=== PATIENT | female | born 1995 | race Caucasian/White ===

== ENCOUNTER 2017-11-17 01:37 | Emergency (ER) | payer SELFPAY ==
[2017-11-17] MEDS ORDERED: NS 0.9% 1000 ML* 1,000 ML IV ONE (02:03)
[2017-11-17] MEDS ORDERED: Famotidine IV* 10 MG/ML 2 ML (20 mg) IV SLOW PU ONE (02:03)
[2017-11-17] MEDS ORDERED: Metoclopramide IV* 5 MG/ML 2 ML VIAL IV ONE (02:03)
--- NOTE | 2017-11-17 06:56 | ED ---
Lorraine Leon Emily, scribed for Thomas March MD on 11/17/17 at 0202 . Substance Abuse/Use - HPI Summary HPI Summary: This patient is a 22 year old F [facility] friend with a chief complaint of ETOH intoxication that occurred [employer]. The patient rates the pain 0/10 in severity. Symptoms aggravated by nothing. Symptoms alleviated by nothing. Patient reports nausea. - History Of Current Complaint Chief Complaint: EDSubstanceAbuse Stated Complaint: ETOH Time Seen by Provider: 11/17/17 01:42 Hx Obtained From: Patient ?: No Severity Initially: Mild Severity Currently: Mild Aggravating Factor(s): Nothing Alleviating Factor(s): Nothing Associated Signs And Symptoms: Nausea - Allergies/Home Medications Allergies/Adverse Reactions: Allergies Allergy/AdvReac Type Severity Reaction Status Date / Time Unable to Assess Allergy Verified 11/17/17 01:39 Home Medications: Home Medications NK [No Home Medications Reported] 11/17/17 [History Confirmed 11/17/17] PMH/Surg Hx/FS Hx/Imm Hx Previously Healthy: Yes Opthamlomology History: Denies: Hx Legally Blind EENT History: Denies: Hx Deafness Infectious Disease History: No Infectious Disease History: Denies: Traveled Outside the [place] in Last 30 Days - Family History Known Family History: Positive: Unknown - Social History Occupation: Student Lives: Dormitory/Roommates Alcohol Use: Occasionally Hx Substance Use: No Substance Use Type: Reports: None Hx Tobacco Use: No Smoking Status (MU): Never Smoked Tobacco Review of Systems Negative: Fever Positive: Nausea All Other Systems Reviewed And Are Negative: Yes Physical Exam - Summary Physical Exam Summary: Appearance: Well appearing, no pain distress Skin: warm, dry, reflects adequate perfusion Head/face: normal Eyes: EOMI, RUTHIE ENT: clear secretions in mouth Neck: supple, non-tender Respiratory: CTA, breath sounds present Cardiovascular: RRR, pulses symmetrical Abdomen: non-tender, soft Bowel Sounds: present Musculoskeletal: normal, strength/ROM intact Neuro: normal, sensory motor intact, A&Ox3, just answers yes or no Triage Information Reviewed: Yes Vital Signs On Initial Exam: Initial Vitals Temp Pulse Resp BP Pulse Ox 97.6 F 70 14 112/74 94 11/17/17 01:37 11/17/17 01:37 11/17/17 01:37 11/17/17 01:37 11/17/17 01:37 Vital Signs Reviewed: Yes Diagnostics - Vital Signs Vital Signs Temp Pulse Resp BP Pulse Ox 11/17/17 01:37 97.6 F 70 14 112/74 94 - Laboratory Lab Statement: Any lab studies that have been ordered have been reviewed, and results considered in the medical decision making process. Re-Evaluation - Re-Evaluation First Eval Re-Evaluation Time: 06:35 Change: Improved Comment: Pt still has nystagmus. Discussed plan of care with pt Course/Dx - Course Course Of Treatment: Patient brought in by friend after drinking heavily in their house. No history of trauma and no findings of trauma on the patient. The patient sobered over several hours in the ER. She was moving about the ER with return of functional capacity are clear speech, steady gait. She'll be discharged with her friend who is her safe ride. - Diagnoses Provider Diagnoses: Alcohol intoxication Discharge - Sign-Out/Discharge Documenting (check all that apply): Discharge/Admit/Transfer - Discharge Plan Condition: Good Disposition: HOME Patient Education Materials: Alcohol Intoxication (ED) Referrals: [facility] - Tito CHEATHAM [Medical Doctor] - Additional Instructions: Never drink to excess. Drinking this much can be dangerous or can allow you to be victimized. Call Saturday to follow-up with [facility]. Discussed with them your drinking and ways to curb it. - Billing Disposition and Condition Condition: GOOD Disposition: HOME The documentation as recorded by the Lorraine fletcher Emily accurately reflects the service I personally performed and the decisions made by me, Thmoas March MD.
[2017-11-17 09:44] VITALS: BP 123/57
== END 2017-11-17 10:08 | disposition home or self-care (01) ==
LOC: ED 01:37
DX: F10.129 Alcohol abuse with intoxication, unspecified (principal)
CPT/HCPCS: 96360; 96374; 96375; 99282; J2765

== ENCOUNTER 2019-09-17 12:06 | Day surgery (SDC) | payer BC ==
[~2019-09-17 12:06] MED LIST: Buffered Lidocaine 1% SYRIN* 1 ML/SYRINGE INTRADERM ONE; DiMENhydriNATE IV* 50 MG/ML VIAL IV PUSH PRN; HYDROmorphone INJ1* 1 MG/ML SYRINGE IV PRN; Lactated Ringers 1000 ML Bag* 1,000 ML IV SCH; Naloxone* 0.4 MG/ML 1 ML VIAL IV PRN; Ondansetron INJ* 2 MG/ML VIAL IV PRN
[2019-09-17] MEDS ORDERED: Buffered Lidocaine 1% SYRIN* 1 ML/SYRINGE INTRADERM ONE (12:52)
[2019-09-17] MEDS ORDERED: Benzocaine/Butamben/Tetracain (CETACAINE - SINGLE USE) 5 gm TOPICAL ONE (13:46)
[2019-09-17] MEDS ORDERED: Propofol* 10 MG/ML 20 ML BTL ONE (13:57)
[2019-09-17] MEDS ORDERED: HYDROmorphone INJ1* 1 MG/ML SYRINGE ONE (13:57)
[2019-09-17] MEDS ORDERED: Rocuronium* 10 MG/ML VIAL ONE (13:58)
[2019-09-17] MEDS ORDERED: Ondansetron INJ* 2 MG/ML VIAL ONE (14:30)
[2019-09-17] MEDS ORDERED: Sugammadex * 200 MG/2 ML VIAL IV PUSH ONE (14:34)
--- NOTE | 2019-09-17 15:11 | BRIEFOPN ---
Brief Operative/Procedure Note - Operation Details Pre-Op Diagnosis: Cavitary lung mass Post-Op Diagnosis: Cavitary lung mass Procedures: Bronchoscopy with BAL, transbronchial and endobronchial biopsies Surgeon(s)/Proceduralists: Kaylie Bhagat Anesthesia: GA Estimated Blood Loss: None Findings: Purulent secretions eminating from RLL superior and lateral segments, no endobronchial lesions Specimen(s)/Culture(s) Description: BAL for microbiological cultures-bacterial, fungal and AGB, cytology. Transbronchial and endobronchial biopsies rt side for surgical pathology. Tissue from endobronchial biopsy also sent to micro for cultures. Complications: None
[2019-09-17 17:33] VITALS: BP 100/59
--- NOTE | 2019-09-18 02:50 | PRO ---
BRONCHOSCOPY REPORT: DATE OF PROCEDURE: 09/17/19 - [facility] PREPROCEDURAL DIAGNOSES: Cavitary lung mass on the right side, with airspace opacity in the right lower lobe, rule out tuberculosis. ANESTHESIA: General anesthesia. INDICATIONS: The patient with pneumonia-like symptoms and flu-like symptoms recently with no improvement on antibiotics. CT showed evidence of cavitary lesion in superior segment of the right lower lobe. The patient with no cough or sputum production since she was treated with antibiotics. No concern with active TB or infectious TB was suspected, the patient also was seen by Dr. Atkins. Respiratory airborne isolation precautions were followed while the patient was in the preprocedural area and also in the OR with maintenance of negative pressure. DESCRIPTION OF PROCEDURE: Informed consent was obtained from the patient prior to the procedure after all the risks and benefits were thoroughly explained including risk of pneumothorax. The patient was intubated with size 8 endotracheal tube. An Olympus bronchoscope was inserted through ET tube for airway inspection. No endobronchial lesions or secretions noted on the left side. The patient noted to have dark yellow purulent secretions emanating from the superior segment of right lower lobe bronchus and also from the lateral segment. Bronchial washings were obtained from that area and were sent for microbiological and cytological exam. The patient noted to have some mucosal irregularity in the superior segment, also with evidence of bleeding with minimal suction, appeared to be irritated in that area. No obvious endobronchial lesions were noted. Bronchoscope was placed in that area and transbronchial biopsies were obtained under fluoro guidance. Endobronchial biopsies were also obtained from superior segment irregular area. Specimen was placed in formalin. Tissue was also sent to Microbiology. Bronchoscope was then withdrawn. No further bleeding was noted in that area. The patient tolerated the procedure well. The patient was seen in Recovery in optimal condition. [id number]/CPS #: [id number] [facility]
== END 2019-09-17 17:30 | disposition home or self-care (01) ==
LOC: OR 12:06
PROVIDERS: ATTEND Internal Medicine
DX: J98.4 Other disorders of lung (principal); R91.8 Other nonspecific abnormal finding of lung field; J45.909 Unspecified asthma, uncomplicated; J84.10 Pulmonary fibrosis, unspecified
CPT/HCPCS: 71045; 76000; 80500; 81025; 87070; 87102; 87116; 87205; 87206; 88112; 88305; J1170; J2405; J2704

== ENCOUNTER 2019-09-18 04:14 | Emergency (ER) | payer BC ==
--- OUTSIDE RECORDS SUMMARY | 2019-09-18 04:29 | XMS REPORT | Continuity of Care Document ---
:1995 External Reference #:[id number] Author Name Abhay Patton M.D. (transmitted by agent of provider Ying Morris ) Address [address] [place] [id number] Problems Description No Information Available Social History Type Date Description Comments Sex Unknown Tobacco Use Start: Unknown Patient has never smoked Smoking Status Reviewed: 09/15/19 Patient has never smoked Allergies, Adverse Reactions, Alerts Active Allergies Reaction Severity Comments Date NKDA 09/08/2019 Nickel Rash 09/15/2019 [place] 09/15/2019 Medications Active Medications SIG Qnty Indications Ordering Date Provider Hydroxyzine HCL 1/2 tablet as Unknown 10mg needed for Tablets anxiety, 1-2 tablet QHS for insomnia Paragard Intrauterine Unknown Copper Contraceptive T380a T380a IUD Albuterol Sulfate HFA 1-2 puffs every 1units Unknown 4-6 hrs as needed 108(90Base) mcg/Act Aerosol Immunizations Description No Information Available Vital Signs Date Vital Result Comment 09/15/2019 9:50am Height 67 inches 5'7" Weight 123.12 lb Heart Rate 75 /min BP Systolic Sitting 108 mmHg BP Diastolic Sitting 70 mmHg Respiratory Rate 14 /min Body Temperature 97.5 F O2 % BldC Oximetry 98 % BMI (Body Mass Index) 19.3 kg/m2 Results Description No Information Available Procedures Description No Information Available Medical Devices Description No Information Available Encounters Description No Information Available Assessments Date Code Description Provider 09/15/2019 R91.8 Other nonspecific abnormal finding of lung Abhay Patton M.D. field Plan of Treatment 09/15/2019 - Abhay Patton M.D.R91.8 Other nonspecific abnormal finding of lung fieldNew Xrays:Chest PA & Lat 2 VWS, Ordered: 09/15/19Follow up:2 weeks Functional Status Description No Information Available Mental Status Description No Information Available Referrals Description No Information Available
[2019-09-18] MEDS ORDERED: NS 0.9% 1000 ML** 1,000 ML IV.FLUID IV ONE (05:47)
[2019-09-18] MEDS ORDERED: Acetaminophen TAB* 325 MG PO ONE (05:48)
--- NOTE | 2019-09-18 05:50 | ED ---
HPI Febrile Illness - HPI Summary HPI Summary: 24 year old female presents with fever today. She states she woke up with the fever. States she has had bronchoscopy yesterday for a mass. States she's been coughing blood with mucus since the procedure with trace blood streaks. she did cough up one small clot. She states her throat feel raw. Dr Nunez performed the procedure and told to go to ED if develop fever or coughs up fresh blood. she states she can taste fresh blood. She denies any shortness breath. She admits to some chest soreness. Denies abdominal pain. States she was nauseous but no vomiting. she denies any sinus congestion. She is not currently on antibiotics. she is not on blood thinners. - History of Current Complaint Chief Complaint: EDFever Time Seen by Provider: 09/18/19 05:39 Pain Intensity: 4 - Allergy/Home Medications Allergies/Adverse Reactions: Allergies Allergy/AdvReac Type Severity Reaction Status Date / Time Latex, Natural Rubber Allergy Itching Verified 09/18/19 05:30 Home Medications: Home Medications Paragard IUD 1 unit INTRAUTERI ONCE 08/22/19 [History Confirmed 09/18/19] hydrOXYzine HCL [Hydroxyzine HCl] 10 mg PO BEDTIME 09/16/19 [History Confirmed 09/18/19] Levofloxacin TAB* [Levaquin TAB*] 750 mg PO DAILY #6 tab 09/18/19 [Rx] PMH/Surg Hx/FS Hx/Imm Hx Endocrine/Hematology History: Denies: Hx Diabetes Cardiovascular History: Denies: Hx Hypertension History: Denies: Hx Renal Disease Sensory History: Reports: Hx Contacts or Glasses - GLASSES Denies: Hx Legally Blind, Hx Deafness, Hx Hearing Aid Opthamlomology History: Reports: Hx Contacts or Glasses - GLASSES Denies: Hx Legally Blind Psychiatric History: Reports: Hx Anxiety - GENERAL, Hx Depression - Surgical History Surgery Procedure, Year, and Place: LASER EYE SURGERY Hx Anesthesia Reactions: No - Immunization History Date of Tetanus Vaccine: assumed utd, college student Date of Influenza Vaccine: unk Infectious Disease History: No Infectious Disease History: Denies: Traveled Outside the [place] in Last 30 Days - Family History Known Family History: Positive: Unknown - Social History Alcohol Use: Occasionally Alcohol Amount: intoxicated at this time Hx Substance Use: No Substance Use Type: Reports: None Substance Use Comment - Amount & Last Used: unknown Hx Tobacco Use: No Smoking Status (MU): Never Smoked Tobacco Have You Smoked in the Last Year: No Review of Systems Positive: Fever Positive: Chest Pain Positive: Cough. Negative: Shortness Of Breath All Other Systems Reviewed And Are Negative: Yes Physical Exam Triage Information Reviewed: Yes Vital Signs On Initial Exam: Initial Vitals Temp Pulse Resp BP Pulse Ox 100.8 F 111 25 109/70 98 09/18/19 04:20 09/18/19 04:20 09/18/19 04:20 09/18/19 04:20 09/18/19 04:20 Vital Signs Reviewed: Yes Appearance: Positive: Well-Appearing Skin: Positive: Warm, Dry Head/Face: Positive: Normal Head/Face Inspection Eyes: Positive: Normal, EOMI, RUTHIE, Conjunctiva Clear ENT: Positive: Normal ENT inspection, Pharynx normal, TMs normal Respiratory/Lung Sounds: Positive: Clear to Auscultation, Breath Sounds Present Cardiovascular: Positive: Normal, RRR Abdomen Description: Positive: Nontender, Soft Bowel Sounds: Positive: Present Musculoskeletal: Positive: Normal Neurological: Positive: Normal Psychiatric: Positive: Normal Procedures - Sedation Patient Received Moderate/Deep Sedation with Procedure: No Diagnostics - Vital Signs Vital Signs Temp Pulse Resp BP Pulse Ox 09/18/19 05:24 102 F 101 15 106/63 98 09/18/19 04:20 100.8 F 111 25 109/70 98 - Laboratory Result Diagrams: 09/18/19 06:00 09/18/19 06:00 Lab Statement: Any lab studies that have been ordered have been reviewed, and results considered in the medical decision making process. - Radiology chest Radiology Interpretation Completed By: Radiologist Summary of Radiographic Findings: IMPRESSION: 1. Unchanged cavitary lesion in the right perihilar region. 2. Slightly increased airspace opacification the right mid to lower lung zone (bronchial washing versus infiltrate). Re-Evaluation - Re-Evaluation First Eval Re-Evaluation Time: 08:01 Comment: has not coughed up blood here Course/Dx - Course Course Of Treatment: 24 year old female presents with fever today. She states she woke up with the fever. States she has had bronchoscopy yesterday for a mass. States she's been coughing blood with mucus since the procedure with trace blood streaks. she did cough up one small clot. She states her throat feel raw. Dr Nunez performed the procedure and told to go to ED if develop fever or coughs up fresh blood. she states she can taste fresh blood. She denies any shortness breath. She admits to some chest soreness. Denies abdominal pain. States she was nauseous but no vomiting. she denies any sinus congestion. She is not currently on antibiotics. she is not on blood thinners. on exam lungs CTA. has fever and is tachycardia. wbc normal. flu neg. crp elevated. chest xray shows possible infilrate. discussed with dr nunez who recommends levaquin based on what saw on bronchoscopy and told follow up saturday. warned symptoms should return to ED for such as worsneing SOB , chest pain, or worsening hemoptysis. patient understand and agrees with plan. - Febrile Illness Differential Diagnoses: Pneumonia, Pyelonephritis, Viremia - Diagnoses Provider Diagnoses: Hemoptysis, Pneumonia - Provider Notifications Discussed Care Of Patient With: Kaylie Nunez Time Discussed With Above Provider: 07:55 - place on levaquin as scope should purlent drainage Discharge ED - Sign-Out/Discharge Documenting (check all that apply): Patient Departure - Discharge Plan Condition: Good Disposition: HOME Prescriptions: Levofloxacin TAB* [Levaquin TAB*] 750 mg PO DAILY #6 tab Patient Education Materials: Pneumonia (ED) Referrals: No Primary Care Phys,NOPCP [Primary Care Provider] - Kaylie Nunez MD [Medical Doctor] - Additional Instructions: take Levaquin once a day for 6 days starting tomorrow take tyenlol or ibuprofen every 6 hours for fever follow up with dr Nunez on saturday Return to ED if develop worsening shortness of breath, coughing up large blood clots or any new or worsening symptoms - Billing Disposition and Condition Condition: GOOD Disposition: Home
[2019-09-18 06:12] LABS: ABS Lymphocytes 0.4 10^3/ul (1.0-4.8); ABS Monocytes 0.5 10^3/ul (0-0.8); ABS Neutrophils 5.5 10^3/ul (1.5-7.7); Eosinophil % 0.2 %; Hematocrit 34 % (35-47); Hemoglobin 11.6 g/dL (12.0-16.0); Lymphocyte % 5.5 %; Mean Corpuscular HGB Conc 34 g/dL (31-36); Mean Corpuscular Hemoglobin 28 pg (27-31); Mean Corpuscular Volume 81 fL (80-97); Mean Platelet Volume 7.9 fL (7.4-10.4); Platelet Count 192 10^3/uL (150-450); Red Blood Count 4.21 10^6 /uL (3.70-4.87); Red Cell Distribution Width 14 % (10-15); White Blood Count 6.4 10^3/uL (3.5-10.8)
[2019-09-18 06:29] LABS: INR 1.3 (0.82-1.09)
[2019-09-18 06:31] LABS: Albumin 4.4 g/dL (3.2-5.2); Albumin/Globulin Ratio 1.4 (1-3); BUN/Creatinine Ratio 11.1 (8-20); C Reactive Protein 24.84 mg/L (<8.01); Calcium 9.8 mg/dL (8.6-10.3); EGFR Non-African American 118.2 (>60); Globulin 3.2 g/dL (2-4); Total Bilirubin 0.4 mg/dL (0.2-1.0); Total Protein 7.6 g/dL (6.4-8.9)
[2019-09-18 06:53] LABS: Influenza A Molecular Negative (Negative); Influenza B Molecular Negative (Negative)
[2019-09-18] MEDS ORDERED: Levofloxacin TAB* 500 MG PO ONE (07:59)
[2019-09-18] MEDS ORDERED: Levofloxacin TAB* 250 MG PO ONE (08:00)
[2019-09-18 08:11] VITALS: BP 99/52
[2019-09-18 08:27] LABS: Urine Appearance Clear; Urine Bilirubin Negative (Negative); Urine Blood Negative (Negative); Urine Color Straw; Urine Glucose Negative (Negative); Urine Ketones 1+ (Negative); Urine Nitrite Negative (Negative); Urine Protein Negative (Negative); Urine Specific Gravity 1.004 (1.010-1.030); Urine Urobilinogen Negative (Negative)
== END 2019-09-18 08:20 | disposition home or self-care (01) ==
LOC: ED 04:14
DX: R04.2 Hemoptysis (principal); J18.9 Pneumonia, unspecified organism; F41.9 Anxiety disorder, unspecified; Z91.040 Latex allergy status
CPT/HCPCS: 36415; 71046; 80053; 81003; 83605; 85025; 85610; 86140; 87040; 96360; 99283; A9270-GY